=== PATIENT | female | born 1995 | race Caucasian/White ===

== ENCOUNTER 2017-02-16 16:59 | Emergency (ER) | payer OTHER ==
[~2017-02-16] VITALS: Ht 149.9 cm; Wt 72.0 kg
[2017-02-16 17:02] VITALS: Ht 149.9 cm; Wt 72.0 kg
[2017-02-16] MEDS ORDERED: FAMOTIDINE 20 MG INJ IV ONE (17:30)
[2017-02-16] MEDS ORDERED: SOD CHLORIDE 0.9% 1,000 ML IV ONE (17:30)
[2017-02-16] MEDS ORDERED: METHYLPREDNISOLONE 125 MG INJ IV ONE (17:30)
[2017-02-16] MEDS ORDERED: DIPHENHYDRAMINE 50 MG INJ IV ONE (17:30)
[2017-02-16] MEDS ORDERED: PRED20TA PO (19:03)
[2017-02-16] MEDS ORDERED: BEN25 PO (19:04)
--- NOTE | 2017-02-16 19:09 | ERD ---
ER Documentation Chief Complaint Date/Time DATE: 02/16/17 TIME: 19:06 Chief Complaint RASH ON FACE AND ARMS AFTER EATING VEGAN CUPCAKE, BOTH EYES SWOLLEN HPI This is a 21-year-old female presents to the ER with bilateral eye swelling after having a vegan cupcake. Patient also began to feel very itchy all over her body. She denies a rash. Patient denies any shortness of breath or wheezing. She denies any tongue, lip, throat swelling. Patient has never had this in the past. She denies any eye discharge or eye pain. ROS 12 point review of systems was done, all negative except per HPI. Medications Home Meds Active Scripts Diphenhydramine Hcl* (Benadryl*) 25 Mg Cap, 25 MG PO Q6, #30 CAP Prov:MARIAN KOENIG C 02/16/17 Prednisone* (Prednisone*) 20 Mg Tab, 60 MG PO DAILY for 5 Days, TAB Prov:ARYA,MARIAN C 02/16/17 Allergies Allergies: Coded Allergies: No Known Allergy (Unverified , 12/05/11) PMhx/Soc History of Surgery: No Anesthesia Reaction: No Hx Neurological Disorder: No Hx Respiratory Disorders: No Hx Cardiac Disorders: No Hx Psychiatric Problems: No Hx Miscellaneous Medical Probl: No (DENIES MEDICAL HX.) Hx Alcohol Use: No Hx Substance Use: No Hx Tobacco Use: No Physical Exam Vitals Vital Signs Date Time Temp Pulse Resp B/P Pulse Ox O2 Delivery O2 Flow Rate FiO2 02/16/17 17:02 99.7 113 18 137/89 96 Physical Exam GENERAL: The patient is well developed and appropriate for usual state of health , in no apparent distress. HEENT: Atraumatic. swelling around both eyes, no erythema, no conjunctival injection or discharge. The oropharynx is clear with no erythema or exudates. No uvular deviation no kissing tonsils. No lip, tongue swelling. CHEST: Clear to auscultation bilaterally. There are no rales, wheezes or rhonchi. HEART: Regular rate and rhythm. No murmurs, clicks, rubs or gallops. NEURO: Alert and oriented. SKIN: no rashes Results 24 hrs Current Medications Medications (Trade) Dose Ordered Sig/Lizy Route PRN Reason Start Time Stop Time Status Last Admin Dose Admin Diphenhydramine HCl (Benadryl) 50 mg ONCE ONCE IV 02/16/17 17:30 02/16/17 17:31 DC 02/16/17 17:37 Famotidine (Pepcid Iv) 20 mg ONCE ONCE IV 02/16/17 17:30 02/16/17 17:31 DC 02/16/17 17:37 Methylprednisolone Sodium Succinate 125 mg 125 mg ONCE ONCE IV 02/16/17 17:30 02/16/17 17:31 DC 02/16/17 17:37 Sodium Chloride (NS) 1,000 ml @ 1,000 mls/hr Q1H ONCE IV 02/16/17 17:30 02/16/17 18:29 DC 02/16/17 17:37 Procedures/MDM This is a 21-year-old female presents to the ER with an allergic reaction. She did have bilateral eye swelling. She was treated in the ER with IV Solu-Medrol , Benadryl, famotidine and fluids. Upon reexamination her swelling was much improved. Patient did not have any respiratory distress or other facial swelling. Patient is afebrile and well-appearing there is no evidence of hypoxia. She is stable for outpatient follow-up. She will be sent home with prednisone and Benadryl. She was advised to get allergy testing with her primary care doctor. Patient is to follow-up with her primary care doctor within 1-2 days return to ER sooner if symptoms worsen. My medical decision making was shared with the patient she understands and agrees with plan. Departure Diagnosis: Primary Impression: Allergic reaction Condition: Stable Patient Instructions: Allergic Reaction, Drug Referrals: THEODORA MEDINA (PCP) Additional Instructions: Call your primary care doctor TOMORROW for an appointment during the next 1-2 days.See the doctor sooner or return here if your condition worsens before your appointment time. ASK YOUR DOCTOR FOR ALLERGY TESTING- IMMUNOCAP TO FOOD AND ENVIRONMENT IT IS A BLOOD TEST. MARIAN KOENIG Feb 16, 2017 19:09
[2017-02-16 19:16] VITALS: BP 130/73; PULSE 94; RESP 18; TEMP 97.9
== END 2017-02-16 19:05 | disposition home or self-care (01) ==
LOC: FTE 16:59
DX: H57.8 Other specified disorders of eye and adnexa (principal)
CPT/HCPCS: 96361; 96374; 96375; J1200; J2930; J7030; Z7502; Z7610

== ENCOUNTER 2017-06-03 00:03 | Emergency (ER) | payer OTHER ==
[~2017-06-03] VITALS: Ht 149.9 cm; Wt 71.5 kg
[~2017-06-03 00:03] MED LIST: BEN25 PO; PRED20TA PO
[2017-06-03 00:07] VITALS: Ht 149.9 cm; Wt 71.5 kg
[2017-06-03] MEDS ORDERED: DIPHENHYDRAMINE 50 MG INJ IM ONE (00:30)
[2017-06-03] MEDS ORDERED: FAMOTIDINE 20 MG TAB PO ONE (00:30)
[2017-06-03] MEDS ORDERED: DIPH25CA6 PO (01:19)
[2017-06-03] MEDS ORDERED: CETI10CA PO (01:19)
--- NOTE | 2017-06-03 01:23 | ERA ---
ER Documentation Chief Complaint Date/Time DATE: 06/03/17 TIME: 01:20 Chief Complaint possible allergic reaction, c/o throat itchy, swelling left upper eyelid HPI Otherwise healthy 22-year-old female presented with a chief complaint of right and left eye swelling 2-3 hours. Patient has had symptoms like this before and was diagnosed with allergic reaction. Unknown trigger. Patient was sitting at her computer when the symptoms began. Patient states that the area itches. Patient also has a rash on her upper left thigh which also itches. Denies identifiable environmental trigger, fever, cough, dyspnea, dysphagia, drooling or change in voice. Medical history and nursing notes have been reviewed and are consistent with patients history. Has not taken any medications to relieve the symptoms. Patient has no other complaints and describes no other associated manifestations. Nursing notes have been reviewed and are consistent with history given. ROS All systems reviewed and are negative except as per history of present illness. Medications Home Meds Active Scripts Diphenhydramine Hcl* (Diphenhydramine Hcl*) 25 Mg Capsule, 25 MG PO Q6 Y for ITCHING for 10 Days, CAP Prov:ART CASTELLANO PA-C 06/03/17 Cetirizine Hcl* (Zyrtec*) 10 Mg Capsule, 10 MG PO DAILY, #10 TAB.CHEW Prov:RAT CASTELLANO PA-C 06/03/17 Diphenhydramine Hcl* (Benadryl*) 25 Mg Cap, 25 MG PO Q6, #30 CAP Prov:MARIAN KOENIG 02/16/17 Prednisone* (Prednisone*) 20 Mg Tab, 60 MG PO DAILY for 5 Days, TAB Prov:MARIAN KOENIG 02/16/17 Allergies Allergies: Coded Allergies: No Known Allergy (Unverified , 12/05/11) PMhx/Soc Medical and Surgical Hx: pt denies Medical Hx, pt denies Surgical Hx History of Surgery: No Anesthesia Reaction: No Hx Neurological Disorder: No Hx Respiratory Disorders: No Hx Cardiac Disorders: No Hx Psychiatric Problems: No Hx Miscellaneous Medical Probl: No (DENIES MEDICAL HX.) Hx Alcohol Use: No Hx Substance Use: No Hx Tobacco Use: No Smoking Status: Never smoker Physical Exam Vitals Vital Signs Date Time Temp Pulse Resp B/P Pulse Ox O2 Delivery O2 Flow Rate FiO2 06/03/17 00:07 99.4 118 20 138/91 98 Physical Exam Const: Healthy-appearing. Well-nourished. Well-developed. No acute distress. Skin: Wheals on the upper left thigh. As noted in eye exam. No petechiae, ulcer, induration, or jaundice. Good turgor. Pulm: Good air movement. No rhonchi, wheezes or crackles in all lobes bilaterally auscultated. No abnormal tympani or dullness on percussion in all lobes bilaterally. Equal and appropriate lung expansion. No abnormal tactile fremitus palpated. No retractions, stridor, tripoding or drooling. Oral: No oral edema or lesions visualized. Mucous membranes moist and pink. Neck: No cervical lymphadenopathy, masses or goiter palpated. Trachea midline. Supple ~ No meningismus. Head: Normocephalic, Atraumatic. Eyes: Periorbital swelling bilaterally. EOMI and PERRLA bilaterally. No foreign body identified. No scleral erythema or conjunctival injection. Ears: Normal External Ears, EACs clear, TM normal bilaterally without erythema. Nose: Normal nose without discharge, septal deviation, or sinus tenderness. Cardio: Regular rate and rhythm; No murmurs, gallops or rubs auscultated. No JVD grossly observed. Radial and posterior tibial pulses 2+ bilaterally. No cyanosis. Capillary refill less than 2 seconds. Abd: Soft, non tender, non distended. No guarding, masses. Normal bowel sounds. No McBurney's point tenderness. MS: Normal motor strength, normal tone with gross examination. Back: No midline, flank or CVA tenderness. Ext: No cyanosis, edema or palpable cord. Normal movement of all extremities grossly observed. Neur: Awake, alert and oriented x3. Neurovascularly intact bilaterally. Psych: Normal Mood and Affect. Results 24 hrs Current Medications Medications (Trade) Dose Ordered Sig/Lizy Route PRN Reason Start Time Stop Time Status Last Admin Dose Admin Famotidine (Pepcid) 20 mg ONCE ONCE PO 06/03/17 00:30 06/03/17 00:31 DC 06/03/17 00:35 Diphenhydramine HCl (Benadryl) 50 mg ONCE ONCE IM 06/03/17 00:30 06/03/17 00:31 DC 06/03/17 00:35 Procedures/MDM Patient is being worked up and evaluated for acute rash as described in the history and physical exam. Patient was given Pepcid and Benadryl in the ED. Reevaluation revealed improvement of symptoms. The most likely diagnosis is acute allergic reaction/urticaria due to unknown trigger. The treatment plan will thus include Zyrtec and Benadryl. At this time, I have little suspicion for vasculitis, erythema multiforme, contact dermatitis, or erythema migrans / lyme disease. I no longer have suspicion for endangerment of the airway. I have spoke with the patient regarding their condition and future management. They have verbally responded that they understand their status and treatment plan. The patients vitals are stable, and their current condition is appropriate for discharge. The patient will be given discharge instructions with return precautions. Departure Diagnosis: Primary Impression: Allergic reaction Qualified Code: T78.40XA - Allergic reaction, initial encounter Condition: Stable Patient Instructions: Allergic Reaction, Other (General) Referrals: THEODORA MEDINA (PCP) Additional Instructions: Follow up with your PCP within the next 1-3 days for a more thorough evaluation and a possible referral to a specialist. Return the the emergency department immediately if symptoms worsen or change. If you have any questions regarding medications, ask your pharmacist or us before you leave. If any adverse reactions occur while taking your medications, discontinue the treatment and return to the emergency department immediately. Take your medications as directed, and complete the entire course of treatment. ART CASTELLANO PA-C Jun 03, 2017 01:23
== END 2017-06-03 01:32 | disposition home or self-care (01) ==
LOC: FTE 00:03
DX: H02.846 Edema of left eye, unspecified eyelid (principal)
CPT/HCPCS: 96372; J1200; Z7502; Z7610

== ENCOUNTER 2019-06-03 15:17 | Emergency (ER) | payer OTHER ==
[~2019-06-03] VITALS: Ht 149.9 cm; Wt 51.9 kg
[~2019-06-03 15:17] MED LIST changes: +CETI10CA PO; +DIPH25CA47 PO; +HYDR50TA15 PO
[2019-06-03 15:21] VITALS: Ht 149.9 cm; Wt 51.9 kg
[2019-06-03 16:45] VITALS: BP 110/64; PULSE 72; RESP 18
== END 2019-06-03 16:45 | disposition home or self-care (01) ==
LOC: FTE 15:17
DX: F41.9 Anxiety disorder, unspecified (principal)
CPT/HCPCS: 99283